=== PATIENT | male | born 1955 | race Caucasian/White ===

== ENCOUNTER 2024-12-17 12:34 | Outpatient (CLI) | payer MEDICARE, BC, SELFPAY ==
--- NOTE | 2024-12-17 13:03 | P.ANES_ITS ---
Anesthesia Charges Start Date/Time Anesthesia Start Date: 12/17/24 Anesthesia Start Time: 13:17 Stop Date/Time Anesthesia Stop Date: 12/17/24 Anesthesia Stop Time: 13:34 Coding CPT Codes CPT Codes: ANES UPR GI NDSC PX NOS - [id number] ([id number]) P2 - PATIENT W/MILD SYST DISEASE, QK - JOB FORWARDER 2-4 CNCRNT ANES PROC, QX - DIRECTOR OF MANUFACTURING OPERATIONS SVC W/ MD MED DIRECTION
--- NOTE | 2024-12-17 13:03 | W.ANESCHARGE ---
Anesthesia Charges Start Date/Time Anesthesia Start Date: 12/17/24 Anesthesia Start Time: 13:17 Stop Date/Time Anesthesia Stop Date: 12/17/24 Anesthesia Stop Time: 13:34 Coding CPT Codes CPT Codes: ANES UPR GI NDSC PX NOS - 42803 ([id number]) P2 - PATIENT W/MILD SYST DISEASE, QK - BIRTH ATTENDANT 2-4 CNCRNT ANES PROC, QX - HIGH SCHOOL MUSIC INSTRUCTOR SVC W/ MD MED DIRECTION
--- NOTE | 2024-12-17 13:38 | P.ANES_ITS ---
Anesthesia Charges Start Date/Time Anesthesia Start Date: 12/17/24 Anesthesia Start Time: 13:17 Stop Date/Time Anesthesia Stop Date: 12/17/24 Anesthesia Stop Time: 13:34 Coding CPT Codes CPT Codes: ANES UPR GI NDSC PX NOS - 56009 ([id number]) P2 - PATIENT W/MILD SYST DISEASE, QX - PYRIDINE RECOVERY OPERATOR SVC W/ MD MED DIRECTION, QK - PULP PILER 2-4 CNCRNT ANES PROC
--- NOTE | 2024-12-17 13:38 | W.ANESCHARGE ---
Anesthesia Charges Start Date/Time Anesthesia Start Date: 12/17/24 Anesthesia Start Time: 13:17 Stop Date/Time Anesthesia Stop Date: 12/17/24 Anesthesia Stop Time: 13:34 Coding CPT Codes CPT Codes: ANES UPR GI NDSC PX NOS - [id number] ([id number]) P2 - PATIENT W/MILD SYST DISEASE, QX - DEAN OF FACULTY SVC W/ MD MED DIRECTION, QK - OCCUPATIONAL HEALTH SPECIALIST 2-4 CNCRNT ANES PROC
== END 2024-12-17 12:35 | disposition home or self-care (01) ==
LOC: OP CLINIC 12:38
PROVIDERS: PCP Family Medicine; Visit Provider Internal Medicine Gastroenterology
DX: R13.10 Dysphagia, unspecified (principal); K22.89 Other specified disease of esophagus
CPT/HCPCS: 00731; 43239; 88305; J2704; J3490